=== PATIENT | female | born 1970 | race Caucasian/White ===

== ENCOUNTER 2023-11-26 17:42 | Emergency (ER) | payer SELFPAY ==
[2023-11-26 17:43] VITALS: BP 202/117; PULSE 102; RESP 18; TEMP 36.7; O2SAT 100; BMI 37.8
--- NOTE | 2023-11-26 17:44 | ED_ITS ---
<Statement entered by Pamela Hernández DO - 11/26/23 22:47> I was consulted by the SALMA, and we discussed the complexity of the problems being addressed. I approved the treatment and management plan for this patient's care in the emergency department, thus performing a substantive portion of the medical decision making. Pamela Hernández DO Discharge Plan Disposition Patient Disposition: Home, Self-Care Condition: Good Referrals Follow up/Referrals: Tahira Yi DO [Staff Physician] - See instructions Provider,Referral, [Primary Care Provider] - See instructions Activity Restrictions/Add. Instructions Additional Instructions/Restrictions: Please call in the morning to make your appointment with [facility]. Return for any worsening signs or symptoms to the ER as needed Clinical Impressions Clinical Impression: Postmenopausal vaginal bleeding Print Language Print Language: Slovenian Discharge ED Provider: Pamela Hernández General Adult HPI General Chief complaint: Vaginal Bleeding Stated complaint: vaginal bleeding Time Seen by Provider: 11/26/23 17:44 History of Present Illness HPI narrative: AndPatient presents for evaluation of asymptomatic vaginal bleeding. Patient is postmenopausal approximately a year and a half yesterday began passing clots. She has not had to wear pads and does not report fresh blood just clotted blood. She has not had a [facility] evaluation in a long time. She denies any pain fever chills hemoptysis hematochezia melena hematemesis. She is on no home medications. Related Data Allergies Allergy/AdvReac Type Severity Reaction Status Date / Time No Known Allergies Allergy Verified 11/26/23 17:59 [facility] Disclaimer: The information contained in this section may have been updated after the patient was seen, as this information can be updated by other users. Social History Smoking Status: Former smoker alcohol intake: never current occupational status: retired Travel in the last 8 weeks: None ROS Obtained: Yes Systems reviewed as appropriate & no additional complaints except as documented Physical Exam General General appearance: alert and in no apparent distress Respiratory Respiratory exam: Present normal lung sounds bilaterally Cardiovascular Cardiovascular exam: Present regular rate Neurological Exam Neurological exam: Present alert and oriented X3 Medical Decision Making Medical Records Medical records reviewed: Yes I reviewed the patient's medical records. Screening: Per USPSTF and CDC recommendations, given the prevalence of disease in our region, it is our hospital?s policy to screen for HIV and viral Hepatitis for all patients aged 18 and over and those with ongoing risk factors. [place] Inquiry Pt receiving controlled substance: No Vital Signs: 11/26/23 17:43 11/26/23 18:30 11/26/23 19:00 Temperature 98.0 F Temperature Source Oral Pulse Rate 88 88 Pulse Rate [Radial] 102 H Respiratory Rate 18 Blood Pressure 183/123 H 161/102 H Blood Pressure [Left Arm] 202/117 H Blood Pressure Mean 146 126 Blood Pressure Mean [Left Arm] 145 Blood Pressure Source Blood Pressure Source [Left Arm] Automatic Cuff Blood Pressure Position Blood Pressure Position [Left Arm] Sitting 02 Sat by Pulse Oximetry 100 99 98 Oxygen Delivery Method Room Air 11/26/23 19:42 Temperature 97.7 F Temperature Source Pulse Rate 92 H Pulse Rate [Radial] Respiratory Rate 18 Blood Pressure 180/118 H Blood Pressure [Left Arm] Blood Pressure Mean Blood Pressure Mean [Left Arm] Blood Pressure Source Automatic Cuff Blood Pressure Source [Left Arm] Blood Pressure Position Sitting Blood Pressure Position [Left Arm] 02 Sat by Pulse Oximetry Oxygen Delivery Method Room Air Lab Data Lab results reviewed: Yes I reviewed the patient's lab results. Lab Results 11/26/23 17:55: WBC 9.0, RBC 5.47 H, Hgb 16.1, Hct 47.1 H, MCV 86.1, MCH 29.4, MCHC 34.2, RDW 14.1, Plt Count 216, MPV 9.1, Neut % (Auto) 68.1, Lymph % (Auto) 23.5, [place] % (Auto) 5.7, Eos % (Auto) 1.1, Baso % (Auto) 1.6, Neut # (Auto) 6.2, Lymph # (Auto) 2.1, [place] # (Auto) 0.5, Eos # (Auto) 0.1, Baso # (Auto) 0.1, Sodium 138, Potassium 3.8, Chloride 100, Carbon Dioxide 29, Anion Gap 12.8, BUN 18 H, Creatinine 0.70, Estimated Creat Clear 146, Estimated GFR 88, Est GFR ( Amer) 106, Glucose 98, Calcium 10.1, Magnesium 1.7, Total Bilirubin 1.3, AST 53 H, ALT 41, Alkaline Phosphatase 53, Total Protein 8.3 H, Albumin 4.6, Globulin 3.7 H, Albumin/Globulin Ratio 1.2, Free T4 Index 4.5 L, Thyroxine (T4) 13.6 H, T3 Uptake 33, Serum HCG, Qual Negative 11/26/23 17:55 11/26/23 17:55 Orders (Tests/Meds): ORDERS Category Date Time Status CBC w/Auto Diff [Complete Blood Count Auto Diff] Stat Lab 11/26/23 17:55 Completed CMP [Comprehensive Metabolic Panel] Stat Lab 11/26/23 17:55 Completed HCG Qualitative, Serum Stat Lab 11/26/23 17:55 Completed Magnesium Stat Lab 11/26/23 17:55 Completed Thyroid Panel Stat Lab 11/26/23 17:55 Results Medical Decision Narrative: In summary patient is a 53-year-old female who presents to the emergency department for evaluation of asymptomatic postmenopausal bleeding. Patient is actually hypertensive on arrival with a blood pressure of 202/117 with a heart rate of 102 with remainder of her vital signs hemodynamically stable upon arrival, afebrile. Physical exam is unremarkable nonfocal including no abdominal pain on palpation no rebound or guarding or rigidity. Normal bowel sounds.. Differential diagnosis includes dysfunctional uterine bleeding versus possible neoplastic process. Initial workup will be conducted with hematologic labs urinalysis. Initial interventions were considered but patient is asymptomatic thus will defer until laboratory results are back. Initial workup reviewed by me shows that her hematologic labs are actually nonactionable. Upon repeat evaluation patient's blood pressure came down to 180/118 with a heart rate of 92. Given this I had interactive discussion with patient about next steps and recommended that she follow-up with [facility] for further investigation of her asymptomatic bleeding as a neoplastic process is not ruled out by our workup today and likely needs a transvaginal ultrasound, that her blood pressure is uncontrolled and she nicely needs to be on medication and she is to follow-up with her PCP although she is asymptomatic from elevated blood pressure. Patient verbalized understanding and agreement. Given that patient is appropriate for discharge referral to [facility] Dr. Niño and close follow-up with her PCP. Critical Care Critical Care Time Critical Care Time: No
[2023-11-26 18:16] LABS: Albumin Level 4.6 g/dl (3.5-5.0); Chloride 100 mmol/L (98-107); Potassium 3.8 mmoL/L (3.5-5.1); Sodium 138 mmol/L (136-145)
[2023-11-26 18:18] LABS: Anion Gap 12.8 mEq/L (5-15); Blood Urea Nitrogen 18 mg/dl (7-17); Carbon Dioxide 29 mmol/L (22.0-30.0); Creatinine Clearance Estimated 146 mL/min (50-200); Estimated Glomerular Filt Rate 88 ml/min (>60); GFR (African American) 106 ML/MIN (>60)
[2023-11-26 18:19] LABS: Alanine Aminotransferase 41 U/L (12-78); Albumin/Globulin Ratio 1.2 (1.1-1.8); Alkaline Phosphatase 53 U/L (38-126); Aspartate Amino Transferase 53 U/L (14-36); Bilirubin,Total 1.3 mg/dl (0.2-1.3); Calcium 10.1 mg/dl (8.4-10.2); Globulin 3.7 g/dL (1.3-3.2); Glucose 98 mg/dl (74-100); HCG Qualitative, Serum Negative (Negative); Magnesium 1.7 mg/dl (1.6-2.3); Total Protein,Serum 8.3 g/dl (6.3-8.2)
[2023-11-26 18:30] VITALS: BP 183/123; PULSE 88; O2SAT 99
--- NOTE | 2023-11-26 18:35 | PC.NURSE ---
ROUNDED ON PT, UPDATED ON POC. CALL LIGHT WITHIN REACH
[2023-11-26 19:00] VITALS: BP 161/102; PULSE 88; O2SAT 98
[2023-11-26 19:37] LABS: Basophils # 0.1 K/mm3 (0-0.2); Basophils % 1.6 % (0.1-2.0); Eosinophils # 0.1 K/mm3 (0.0-0.4); Eosinophils % 1.1 % (0.1-12.0); Hematocrit 47.1 % (37.0-47.0); Hemoglobin 16.1 g/dL (12.2-16.2); Lymphocytes # 2.1 K/mm3 (0.7-4.5); Lymphocytes % 23.5 % (10-50); Mean Corpuscular HGB Conc 34.2 g/dL (31.8-35.4); Mean Corpuscular Hemoglobin 29.4 pg (27.0-31.2); Mean Corpuscular Volume 86.1 fl (81-99); Mean Platelet Volume 9.1 fl (7.4-10.4); Monocytes # 0.5 K/mm3 (0.1-1.0); Monocytes % 5.7 % (1.7-9.3); Neutrophils # 6.2 K/mm3 (1.8-7.8); Neutrophils % 68.1 % (37.0-80.0); Platelet Count 216 K/mm3 (142-424); Red Blood Count 5.47 M/mm3 (4.20-5.40); Red Cell Distribution Width 14.1 % (11.5-17.5)
[2023-11-26 19:42] VITALS: BP 180/118; PULSE 92; RESP 18; TEMP 36.5; O2SAT 100
--- NOTE | 2023-11-26 19:57 | PC.NURSE ---
PA aware of pt's high blood pressures
[2023-11-26 20:46] LABS: T4 (Thyroxine) 13.6 ug/dl (5.53-11.0)
[2023-11-26 21:15] LABS: Free Thyroxine Index 4.5 ug/dL (5.93-13.13); Triiodothryronine (T3) Uptake 33 % (23.5-40.5)
[2023-11-26 22:42] LABS: Thyroid Stimulating Hormone 1.09 uIU/mL (0.465-4.68)
== END 2023-11-26 19:57 | disposition home or self-care (01) ==
PROVIDERS: Physician Assistant; Emergency Provider Emergency Medicine
DX: N95.0 Postmenopausal bleeding (principal)
CPT/HCPCS: 80050; 80053; 83735; 84436; 84443; 84479; 84703; 85025; 99283